=== PATIENT | male | born 1985 | race African-American/Black ===

== ENCOUNTER 2021-01-17 09:12 | Emergency (ER) | payer BC, SELFPAY ==
[2021-01-17 09:15] VITALS: BP 146/96; PULSE 77; RESP 18; TEMP 36.7; O2SAT 100
--- NOTE | 2021-01-17 10:23 | ED.DENTAL ---
HPI - Dental/Oral General Chief complaint: Dental/Oral Stated complaint: mouth pain Time Seen by Provider: 01/17/21 09:14 Source: patient and RN notes reviewed Mode of arrival: ambulatory Limitations: no limitations History of Present Illness HPI Narrative: Patient is a 35-year-old male who presents with right lower posterior dental pain which has been a recurrent issue currently waiting to get into dentistry patient denies any fever chills nausea vomiting is attempted [id number] medications with minimal improvement on arrival is in the room in no distress worse with eating Related Data Allergies Allergy/AdvReac Type Severity Reaction Status Date / Time No Known Allergies Allergy Verified 01/17/21 09:19 Review of Systems Review of Systems: All systems reviewed & are unremarkable except as noted in HPI and below PMFSH Social History Social History (Updated 01/17/21 @ 10:24 by Joseph Layne PA-C) Smoking status: Never smoker Exam Narrative: Exam Narrative: GENERAL: Well-appearing, well-nourished, and in no acute distress. HEAD: Normocephalic, atraumatic. EYES: PERRLA and EOMI. ENT: Nares clear, no rhinorrhea or epistaxis. Mucous membranes moist. Posterior right lower dental decay no space-occupying lesions NECK: Supple. No adenopathy or masses. No carotid bruits or JVD CHEST: Clear to auscultation. No respiratory distress. No wheezes rales or rhonchi HEART: Regular rate and rhythm. No murmur heard. SKIN: Warm, dry, no rash. NEURO: No focal deficits. Alert and oriented x3. PSYCH: Normal mood and affect. Course Course Emergency Course: Patient in the room in no distress aware of case findings treatment plan and diagnosis agreeing to follow-up as instructed or to return if symptoms worsen or concerns. Patient felt appropriate for outpatient reevaluation Vital Signs Vital signs: Vital Signs Temperature 98.1 F 01/17/21 09:15 Pulse Rate 77 01/17/21 09:15 Respiratory Rate 18 01/17/21 09:15 Blood Pressure 146/96 H 01/17/21 09:15 Pulse Oximetry 100 01/17/21 09:15 Temperature 98.1 F 01/17/21 09:15 Pulse Rate 77 01/17/21 09:15 Respiratory Rate 18 01/17/21 09:15 Blood Pressure 146/96 H 01/17/21 09:15 Pulse Oximetry 100 01/17/21 09:15 MDM - Dental/Oral MDM Narrative Medical decision making narrative: Paitents pain and complaint coupled with physical findings are consistant with dentalgia. There are no focal signs of space occupying lesions that are compromising to the ariway. The floor of the mouth is soft with no signs of Ludwigs Angina. Patient is without trismus or drooling and able to swallow secreations. Patient is felt appropriate for discharge home with dental follow up. Discharge Plan Discharge Clinical Impression: Dental abscess Patient Disposition: Home, Self-Care Condition: Stable Instructions: Antibiotic Form, Dental Abscess (ED) Additional Instructions: Follow-up with dentistry in the next 7 to 10 days for reevaluation Return if symptoms worsen or concerns or if there is any increase in redness swelling pain fever nausea vomiting or unable to swallow or open the mouth Only take medications as directed Follow patient education sheets Prescriptions: New amoxicillin 500 mg tablet 500 mg PO TID 10 Days Qty: 30 RF: 0 chlorhexidine gluconate [Peridex] 0.12 % mouthwash 15 ml mucous membrane BID Qty: 1500 RF: 0 hydrocodone-acetaminophen 5-325 mg tablet 1 tablet PO Q6H PRN (Reason: pain) Qty: 6 RF: 0 Follow-up/Referrals: Dental Referral Line [Outside] [facility] [Outside] [facility] [place] [Outside] [facility] [Outside] PHYSICIAN NOT ON STAFF,NONSTAFF [Primary Care Provider] - Stand Alone Forms: Work/School Release IP
== END 2021-01-17 11:15 | disposition home or self-care (01) ==
PROVIDERS: Emergency Provider Emergency Medicine
DX: K04.7 Periapical abscess without sinus (principal)
CPT/HCPCS: 99283

== ENCOUNTER 2021-04-04 05:14 | Emergency (ER) | payer BC, SELFPAY ==
[2021-04-04 05:15] VITALS: BP 146/89; PULSE 70; RESP 18; TEMP 36.3; O2SAT 100
--- NOTE | 2021-04-04 05:40 | ED.DENTAL ---
HPI - Dental/Oral General Chief complaint: Dental/Oral Stated complaint: rt sided dental pain, jaw swelling Time Seen by Provider: 04/04/21 05:20 History of Present Illness HPI Narrative: Patient is a 35-year-old male who presents ER with dental pain. Tooth #31. Has been broken for about 1 year. [place] pain over the last 3 days. Has used dental wax without improvement. No improvement with [id number]-lezyemc medications. He is developed some swelling. No fevers chills or sweats. He is supposed to see his dentist in a couple weeks. Related Data Allergies Allergy/AdvReac Type Severity Reaction Status Date / Time No Known Allergies Allergy Verified 04/04/21 05:18 Review of Systems Constitutional: Constitutional: Denies chills and Denies fever(s) ENT: Denies dysphagia and Denies sore throat Comments: + Dental Pain Gastrointestinal: Gastrointestinal: Denies nausea and Denies vomiting PMFSH Past Medical History Medical History (Updated 04/04/21 @ 05:44 by Finesse Calderon MD) Healthy adult male Surgical History Surgical History (Updated 04/04/21 @ 05:42 by Finesse Calderon MD) No history of previous surgery Social History Social History (Updated 01/17/21 @ 10:24 by Joseph Layne PA-C) Smoking status: Never smoker Exam Narrative: GENERAL: Well-appearing, well-nourished, and in no acute distress. HEAD: Normocephalic, atraumatic. ENT: Mucous membranes moist. Fractured tooth #31. Mild submandibular swelling. NEURO: Alert and oriented x3. PSYCH: Normal mood and affect. Course Course Emergency Course: [place] for pain here. Discharged with antibiotics and pain medication. Vital Signs Vital signs: Vital Signs Temperature 97.3 F L 04/04/21 05:15 Pulse Rate 70 04/04/21 05:15 Respiratory Rate 18 04/04/21 05:15 Blood Pressure 146/89 H 04/04/21 05:15 Pulse Oximetry 100 04/04/21 05:15 Temperature 97.3 F L 04/04/21 05:15 Pulse Rate 70 04/04/21 05:15 Respiratory Rate 18 04/04/21 05:15 Blood Pressure 146/89 H 04/04/21 05:15 Pulse Oximetry 100 04/04/21 05:15 Discharge Plan Discharge Clinical Impression: Toothache Patient Disposition: Home, Self-Care Condition: Stable Instructions: Toothache (ED) Additional Instructions: Return the ER if you have fever over 100.4 ?F, you cannot keep down food or water, you have chest pain or shortness of breath, or you have additional concerns. Prescriptions: New amoxicillin-pot clavulanate [Augmentin] 875-125 mg tablet 1 tablet PO Q12H Qty: 14 RF: 0 hydrocodone-acetaminophen 5-325 mg tablet 1 tablet PO Q6H PRN (Reason: pain) Qty: 12 RF: 0 Follow-up/Referrals: PHYSICIAN NOT ON STAFF,NONSTAFF [Primary Care Provider] - Stand Alone Forms: Work/School Release IP
[2021-04-04] MEDS: HYDROcodone/acetaminophen (*CRX) 5-325 MG TABLET 1 TAB PO (05:46)
[2021-04-04 06:10] VITALS: BP 161/88; PULSE 70; RESP 18; O2SAT 98
== END 2021-04-04 06:10 | disposition home or self-care (01) ==
LOC: ANHED 06:02
PROVIDERS: Emergency Provider Emergency Medicine; PCP Family Medicine
DX: K08.89 Other specified disorders of teeth and supporting structures (principal)
CPT/HCPCS: 99283; A9270

== ENCOUNTER 2021-05-02 19:52 | Emergency (ER) | payer BC, SELFPAY ==
--- NOTE | ~2021-05-02 | CT_ITS ---
EXAMINATION: CT brain wo con INDICATION: Headache COMPARISON: None TECHNIQUE: Standard unenhanced head CT. The dose-length product (DLP) was 605.33 mGy-cm. The mA was a djusted according to patient size. Iterative reconstruction technique was employed. FINDINGS: There is no intracranial hemorrhage, acute infarction, or abnormal mass lesion. The ventric les are normal. There is no abnormal mass effect or midline shift. The nesbitt-white matter differentiat ion is normal. The basal cisterns are patent. The orbits are normal. The paranasal sinuses, mastoids and calvarium are normal. IMPRESSION: 1. No acute intracranial abnormality. Reviewed, dictated and finalized at location [facility].
[2021-05-02 20:20] VITALS: BP 135/84; PULSE 64; RESP 20; TEMP 36.6; O2SAT 99
--- NOTE | 2021-05-02 20:23 | ECG_ITS ---
Measurements Intervals [place] Rate: 53 P: 31 IA: 178 QRS: 5 QRSD: 91 T: -3 QT: 384 QTc: 362 Interpretive Statements SINUS BRADYCARDIA VOLTAGE CRITERIA FOR LVH BORDERLINE T WAVE ABNORMALITY- INFERIOR LEADS BORDERLINE ECG Electronically Signed On 05-02-2021 23:01:55 CDT by Michael Asencio D.O.
[2021-05-02 20:46] VITALS: BP 131/80; PULSE 61; RESP 20; O2SAT 100
[2021-05-02 21:15] LABS: Basophils Absolute Auto 0.1 K/mm3 (0.0-0.1); Basophils Percent Auto 0.8 % (0.2-1.2); Eosinophils Percent Auto 0.5 % (0-4.4); Hematocrit 46.2 % (42.0-52.0); Hemoglobin 15.1 g/dL (14.0-18.0); Immature Granulocyte Absolute 0.02 K/mm3 (0.00-0.031); Immature Granulocyte Percent A 0.3 % (0-0.5); Lymphocytes Absolute Auto 1.97 K/mm3 (0.9-3.2); Lymphocytes Percent Auto 30.6 % (18.3-44.2); Mean Corpuscular HGB Conc 32.7 g/dl (32-36); Mean Corpuscular Hemoglobin 28.1 pg (26-34); Mean Platelet Volume 9.7 fl (7.4-10.4); Monocytes Absolute Auto 0.4 K/mm3 (0.1-0.6); Monocytes Percent Auto 6.8 % (2.6-8.5); Neutrophils Absolute Auto 3.9 K/mm3 (1.3-6.7); Platelet Count Result 285 k/mm3 (150-375); Red Blood Count 5.37 M/mm3 (4.6-6.20); Red Cell Distribution Width 12.8 % (11.5-14.5); White Blood Count 6.4 K/mm3 (4.5-10.0)
[2021-05-02 21:22] LABS: Add Urine Microscopic? NO; Appearance Urine Clear (Clear); Bilirubin Urine Negative (Negative); Blood Urine Negative (Negative); Color Urine Yellow (Yellow); Glucose Urine UA Negative (Negative); Ketones Urine Negative (Negative); Leukocyte Esterase Ur Negative LEU/UL (Negative); Nitrate Urine Negative (Negative); Protein Urine Negative (Negative); Urobilinogen Urine Negative mg/dL (<2.0)
[2021-05-02 22:03] LABS: Alanine Aminotransferase 22 U/L (4-50); Alkaline Phosphatase 94 U/L (38-126); Anion Gap 10 mmol/L (8-16); Aspartate Amino Transferase 30 U/L (17-59); Bilirubin,Total 0.4 mg/dL (0.2-1.3); Blood Urea Nitrogen 11 mg/dL (9-20); Calcium 9.6 mg/dL (8.4-10.2); Carbon Dioxide 29 mmol/L (22-30); Chloride 102 mmol/L (98-107); Estimated CRCL calculation 83 ml/min; Estimated Glomerular Filt Rate > 60; Glucose 96 mg/dL (65-110); Potassium 4.1 mmol/L (3.4-5.0); Sodium 141 mmol/L (137-145)
[2021-05-02 22:45] VITALS: BP 132/84; PULSE 61; RESP 19; O2SAT 100
--- NOTE | 2021-05-02 23:55 | ED.NEUROSD ---
HPI - Neuro Symptoms/Deficit General Chief Complaint: Neuro Symptoms/Deficit Stated Complaint: Blurry vision, light headed Time Seen by Provider: 05/02/21 21:38 History of Present Illness HPI Narrative: Patient presents with headache and vision changes. Patient ports he has had a headache for the past 24 hours has been slowly improving but not resolved so wanted come into the ER for evaluation. Reports been taking some of his 's migraine medication as well as [id number] Excedrin which appears to be helping. His primary concern is he noted some vision changes described as a glossy sensation of everything that he looked at that is now resolved. He denies focal numbness or weakness he denies any nausea or vomiting denies any recent fevers. Reports symptoms onset when he took his vitamins but he took multiple vitamins all months which is unusual for him. Also reports a history of migraine headaches but has not had a headache since he was 20 years old Related Data Home Medications Medication Instructions Recorded Confirmed No Home Medications 05/02/21 05/02/21 Allergies Allergy/AdvReac Type Severity Reaction Status Date / Time ibuprofen AdvReac Nausea Verified 05/02/21 20:41 Review of Systems Review of Systems: CONSTITUTIONAL: Denies fever, chills, or sweats. EYES: Denies visual changes, redness, or discharge. ENT: Denies rhinorrhea, congestion, sore throat, or otalgia. CARDIOVASCULAR: Denies chest pain, palpitations, or edema. RESPIRATORY: Denies cough or dyspnea. GASTROINTESTINAL: Denies abdominal pain, nausea, vomiting, or diarrhea. GENITOURINARY: Denies dysuria or hematuria. SKIN: Denies rash or itching. MUSCULOSKELETAL: Denies back pain, joint pain, or myalgia. NEUROLOGIC: Denies numbness, dizziness, or weakness. PSYCHIATRIC: Denies anxiety or depression. All systems reviewed & are unremarkable except as noted in HPI and below PMFSH Past Medical History Medical History Healthy adult male Surgical History Surgical History No history of previous surgery Social History Social History Smoking status: Never smoker Exam Narrative: GENERAL: Well-appearing, well-nourished, and in no acute distress. HEAD: Normocephalic, atraumatic. EYES: PERRLA and EOMI. ENT: Nares clear, no rhinorrhea or epistaxis. Mucous membranes moist. NECK: Supple. No masses. No meningeal signs EXTREMITIES: Normal range of motion. No edema. SKIN: Warm, dry, no rash. NEURO: Cranial nerves II through XII are intact, 5 out of 5 strength in all extremities, sensation intact to light touch in all extremities alert and oriented x3. PSYCH: Normal mood and affect. Course Reevaluation(s) Reevaluation #1: Patient resting comfortably results reviewed with patient. Patient comfortable with outpatient plan. Patient reports his vision changes resolved prior to ER evaluation Date: 05/02/21 Time: 23:55 Vital Signs Vital signs: Vital Signs Temperature 36.6 C 05/02/21 20:20 Pulse Rate 64 05/02/21 20:20 Respiratory Rate 20 05/02/21 20:20 Blood Pressure 135/84 05/02/21 20:20 Pulse Oximetry 99 05/02/21 20:20 Temperature 36.6 C 05/02/21 20:20 Pulse Rate 58 L 05/03/21 00:37 Respiratory Rate 17 05/03/21 00:37 Blood Pressure 142/86 H 05/03/21 00:37 Pulse Oximetry 99 05/03/21 00:37 MDM - Neuro Symptoms/Deficit MDM Narrative Medical decision making narrative: H&P as above, vss, pt looks clinically well, exam without focal neurological deficits, labs clinically unremarkable, img clinically unremarkable, additional labs/img considered, symptomatic relief available as needed, on reevaluation pt continues to looks clinically well. Suspect migraine with aura, dns CVA, intracranial hemorrhage, mass, encephalitis s, meningitis. plan to tx/monitor as op w/ pc
[2021-05-03 00:04] VITALS: PULSE 56; RESP 12; O2SAT 99
[2021-05-03] MEDS: SODIUM CHLORIDE 0.9% IV 1,000 ML 999 ML IV CONT (00:06)
[2021-05-03 00:37] VITALS: BP 142/86; PULSE 58; RESP 17; O2SAT 99
== END 2021-05-03 00:37 | disposition home or self-care (01) ==
PROVIDERS: Emergency Medicine; Emergency Provider Emergency Medicine
DX: G43.909 Migraine, unspecified, not intractable, without status migrainosus (principal); R00.1 Bradycardia, unspecified; R94.31 Abnormal electrocardiogram [ECG] [EKG]
CPT/HCPCS: 36415; 70450; 80053; 81003; 85025; 93005; 96361; 96365; 99284; J0131; J7030

== ENCOUNTER 2021-07-10 20:01 | Emergency (ER) | payer BC, SELFPAY ==
[2021-07-10 20:06] VITALS: BP 147/84; PULSE 66; RESP 18; TEMP 37.3; O2SAT 100
[2021-07-10 22:38] VITALS: BP 154/75; PULSE 60; RESP 16; O2SAT 96
[2021-07-10 22:43] VITALS: BP 152/79; PULSE 55; RESP 16; O2SAT 98
--- NOTE | 2021-07-10 22:44 | ED.DENTAL ---
HPI - Dental/Oral General Chief complaint: Dental/Oral Stated complaint: dental pain x 1 week Time Seen by Provider: 07/10/21 22:36 Source: patient, RN notes reviewed and old records reviewed Mode of arrival: ambulatory Limitations: no limitations History of Present Illness HPI Narrative: This is a 36 year old male who presents for evaluation of dental pain. He has been dealing with a broken tooth to right lower jaw for over 1 year. He has had worsening pain for 1 week. . HE has been taking Excedrin and gargling with warm water for 1 week without relief. He states he was unable to go to his dentist 3 months ago because his dentist caught covid. He called today and they are supposed going to call him tomorrow to get him. He denies nausea, vomiting, fever or chills. He states he has not been able to eat in 3 days because it hurts to eat. On review of patient old chart, he has been to ER multiple visits for this same tooth. Related Data Allergies Allergy/AdvReac Type Severity Reaction Status Date / Time ibuprofen AdvReac Nausea Verified 07/10/21 20:10 Review of Systems Review of Systems: All systems reviewed & are unremarkable except as noted in HPI and below PMFSH Past Medical History Medical History Healthy adult male Surgical History Surgical History No history of previous surgery Social History Social History Smoking status: Never smoker Exam Const: General: no acute distress and alert Orientation/consciousness: patient oriented x3 HENMT: Ears: external ears normal Mouth: Yes lip normal, Yes tongue normal, Yes moist mucous membranes, No trismus and No restricted motion Teeth and gingiva: abnormal tooth and associated gingiva (#31 broken, no significant gum swelling, but it is tender) and fair dentition Throat: posterior oropharynx normal, tonsils normal and uvula midline Eyes: EOM: EOMs intact bilaterally Neck: Neck: normal visual inspection Resp: Effort & Inspection: normal respiratory effort Neuro: General: patient oriented x3 and moves all extremities Gait exam (Neuro): Normal gait present Extrem: General: normal to inspection Psych: Mental Status: mental status grossly normal Affect: normal affect Course Reevaluation(s) Reevaluation #1: Patient given dose of antibiotics in ER . Date: 07/10/21 Time: 22:49 Vital Signs Vital signs: Vital Signs Temperature 99.2 F 07/10/21 20:06 Pulse Rate 66 07/10/21 20:06 Respiratory Rate 18 07/10/21 20:06 Blood Pressure 147/84 H 07/10/21 20:06 Pulse Oximetry 100 07/10/21 20:06 Temperature 99.2 F 07/10/21 20:06 Pulse Rate 72 07/10/21 23:48 Respiratory Rate 18 07/10/21 23:48 Blood Pressure 137/80 07/10/21 23:48 Pulse Oximetry 100 07/10/21 23:48 Discharge Plan Discharge Clinical Impression: Toothache Patient Disposition: Home, Self-Care Condition: Stable Instructions: Antibiotic Form, Dental Abscess (ED), Toothache (ED) Additional Instructions: Please it is important that you follow up with your dentist for treatment. Take antibiotics to completion. Prescriptions: New amoxicillin-pot clavulanate [Augmentin] 875-125 mg tablet 1 tablet PO Q12H Qty: 20 RF: 0 chlorhexidine gluconate [Peridex] 0.12 % mouthwash 15 ml buccal BID Qty: 1500 RF: 0 ketorolac 10 mg tablet 10 mg PO Q6H PRN (Reason: pain) Qty: 14 RF: 0 ondansetron 4 mg tablet,disintegrating 4 mg PO Q6H PRN (Reason: nausea and vomiting) Qty: 10 RF: 0 Follow-up/Referrals: PHYSICIAN NOT ON STAFF,NONSTAFF [Primary Care Provider] - Stand Alone Forms: Work/School Release IP
[2021-07-10] MEDS: ONDANSETRON HCL ODT 4 MG TABLET 8 MG PO (22:56)
[2021-07-10] MEDS: KETOROLAC (*BKC) 60 MG/2 ML VIAL IM (22:57)
[2021-07-10] MEDS: AMOXICILLIN/CLAVULANATE K 875-125 MG TAB 1 TABLET PO (23:07)
[2021-07-10 23:48] VITALS: BP 137/80; PULSE 72; RESP 18; O2SAT 100
== END 2021-07-10 23:49 | disposition home or self-care (01) ==
LOC: ANHED 22:53
PROVIDERS: Emergency Provider General Practice
DX: K08.89 Other specified disorders of teeth and supporting structures (principal)
CPT/HCPCS: 96372; 99283; A9270; J1885

== ENCOUNTER 2023-04-10 21:13 | Emergency (ER) | payer OTHER, BC, SELFPAY ==
[2023-04-10] VITALS (14 sets, daily range): BP systolic 104–144; BP diastolic 76–84; PULSE 76–93; RESP 17–25; TEMP 36.2–36.7; O2SAT 96–100
--- NOTE | ~2023-04-10 | CT_ITS ---
EXAMINATION: CT abdomen pelvis w con DATE: 04/10/2023 23:37 INDICATION: Epigastric and left lower quadrant abdominal pain TECHNIQUE: Computed tomography (CT) of the abdomen and pelvis was performed with 100 CC Omnipaque 350 intravenous contrast. Automated exposure control and iterative reconstruction technique were employe d. Exam dose: 620.73 mGy-cm total exam DLP. COMPARISON: None. FINDINGS: The lung bases are clear. Heart size is within normal range. No pericardial or pleural effu mukul. The liver, gallbladder, bile ducts, spleen pancreas, pancreatic duct, and adrenal glands and kidneys are unremarkable. Normal caliber of the abdominal aorta. No intraperitoneal or retroperitoneal or pelvic mass lesion or adenopathy or ascites. The urinary bladder, prostate gland and seminal vesicles are unremarkable. Normal appendix. No bowel obstruction, bowel wall thickening, pneumatosis or intraperitoneal free air is detected. Small fat-containing right inguinal hernia. Small fat-containing umbilical hernia. IMPRESSION: Normal appendix No significant abnormality within the abdomen or pelvis Small fat-containing right inguinal hernia Small fat-containing umbilical hernia Reviewed, dictated and finalized at [facility]. Reviewed, dictated and finalized at location A.
[2023-04-10 21:28] LABS: Basophils Percent Auto 0.7 % (0.2-1.2); Eosinophils Absolute Auto 0.1 K/mm3 (0-0.3); Eosinophils Percent Auto 1.3 % (0-4.4); Hematocrit 47.3 % (42.0-52.0); Hemoglobin 15.4 g/dL (14.0-18.0); Immature Granulocyte Absolute 0.01 K/mm3 (0.00-0.031); Immature Granulocyte Percent A 0.2 % (0-0.5); Lymphocytes Absolute Auto 2.33 K/mm3 (0.9-3.2); Lymphocytes Percent Auto 42.3 % (18.3-44.2); Mean Corpuscular HGB Conc 32.6 g/dl (32-36); Mean Corpuscular Hemoglobin 27.1 pg (26-34); Mean Corpuscular Volume 83.1 fl (80-100); Mean Platelet Volume 9.4 fl (7.4-10.4); Monocytes Absolute Auto 0.4 K/mm3 (0.1-0.6); Monocytes Percent Auto 6.9 % (2.6-8.5); Neutrophils Absolute Auto 2.7 K/mm3 (1.3-6.7); Neutrophils Percent Auto 48.6 % (45.5-73.1); Platelet Count Result 291 k/mm3 (150-375); Red Blood Count 5.69 M/mm3 (4.6-6.20); Red Cell Distribution Width 12.6 % (11.5-14.5); White Blood Count 5.5 K/mm3 (4.5-10.0)
[2023-04-10 21:38] LABS: Alanine Aminotransferase 28 U/L (6-50); Albumin Level 4.6 g/dL (3.5-5.1); Alkaline Phosphatase 93 U/L (38-126); Anion Gap 9 mmol/L (8-16); Aspartate Amino Transferase 35 U/L (17-59); Bilirubin,Total 0.6 mg/dL (0.2-1.3); Blood Urea Nitrogen 13 mg/dL (9-20); Calcium 9.4 mg/dL (8.4-10.2); Carbon Dioxide 30 mmol/L (22-30); Chloride 100 mmol/L (98-107); Estimated CRCL calculation 75 ml/min; Estimated Glomerular Filt Rate > 60; Glucose 104 mg/dL (65-110); Lipase 616 U/L (23-300); Potassium 3.8 mmol/L (3.4-5.0); Sodium 139 mmol/L (137-145)
[2023-04-10 22:32] LABS: Appearance Urine Clear (Clear); Bacteria Urine None Seen /hpf; Bilirubin Urine Negative (Negative); Blood Urine Negative (Negative); Color Urine Yellow (Yellow); Glucose Urine UA Negative (Negative); Ketones Urine Trace mg/dL (Negative); Leukocyte Esterase Ur Negative LEU/UL (Negative); Nitrate Urine Negative (Negative); Non Pathogenic Casts 0-2; Protein Urine Trace mg/dL (Negative); RBC Urine 0-2 /hpf (0-2); Specific Grav Ur 1.026 (1.001-1.035); Squamous Epithelial Cell Urine None seen /hpf (Few); WBC Urine 0-5 /hpf
[2023-04-10 22:58] LABS: Add Urine Microscopic? YES
--- NOTE | 2023-04-10 23:29 | ED.GENADULT ---
HPI - General Adult General Chief complaint: Abdominal Pain <ROSELIA Givens Last Filed: 04/11/23 03:29> Stated complaint: abd pain <Magnus Silva PA-C - Last Filed: 04/11/23 03:29> Time Seen by Provider: 04/10/23 22:53 <Magnus Silva PA-C - Last Filed: 04/11/23 03:29> Source: patient <ROSELIA Givens Last Filed: 04/11/23 03:29> Mode of arrival: ambulatory <ROSELIA Givens Last Filed: 04/11/23 03:29> Limitations: no limitations <ROSELIA Givens Last Filed: 04/11/23 03:29> History of Present Illness HPI narrative: This is a 37-year-old male with no pertinent PMH who presents to the ED with chief complaint of abdominal pain intermittently for the past 3 months but a little worse today. He reports that he often has pain across his upper abdomen and epigastric area. He is unsure of anything that specifically makes this better or worse. He has been attributing it to constipation for the past 3 months. States he is having bowel movements every other day. He has been trying to take Tums for acid reflux and Metamucil/MiraLAX for constipation. States this did not give him relief today. He also states that he has been having a new more significant pain in the left lower quadrant in the last couple of days. Denies fevers, chills, nausea, vomiting, urinary symptoms, back pain, chest pain, shortness of breath, cough. Denies alcohol abuse or a history of pancreas problems. Denies any abdominal surgical history. <ROSELIA Givens Last Filed: 04/11/23 03:29> Related Data Allergies/adverse reactions: Allergies Allergy/AdvReac Type Severity Reaction Status Date / Time ibuprofen AdvReac Nausea Verified 07/10/21 20:10 <ROSELIA Givens Last Filed: 04/11/23 03:29> Review of Systems Review of Systems: All systems as dictated in HPI <ROESLIA Givens Last Filed: 04/11/23 03:29> [facility] Past Medical History Medical History: Medical History Healthy adult male <Magnus Silva PA-C - Last Filed: 04/11/23 03:29> Surgical History Surgical History: Surgical History No history of previous surgery <Magnus Silva PA-C - Last Filed: 04/11/23 03:29> Social History Social History: Social History Smoking status: Never smoker <Magnus Silva PA-C - Last Filed: 04/11/23 03:29> Exam Narrative: GENERAL: Well-appearing, well-nourished, and in no acute distress. HEAD: Normocephalic, atraumatic. EYES: PERRLA and EOMI. ENT: Nares clear, no rhinorrhea or epistaxis. Mucous membranes moist. Oropharynx without tonsillar hypertrophy exudate or other lesions. NECK: Supple. No adenopathy or masses. CHEST: No respiratory distress. Clear to auscultation. No wheezes rales or rhonchi HEART: Regular rate and rhythm. No murmur heard. Normal peripheral pulses. ABDOMEN: Tenderness in the epigastrium. Tenderness in the left lower quadrant. Soft, nondistended, normal active bowel sounds. MSK: Normal range of motion. No edema. SKIN: Warm, dry, no rash. NEURO: Alert and oriented x3. No focal deficits. PSYCH: Normal mood and affect. <Magnus Silva PA-C - Last Filed: 04/11/23 03:29> Course Course Emergency Course: He is declining pain medications or nausea medications at this time. <Magnus Silva PA-C - Last Filed: 04/11/23 03:29> FLAKER OPERATOR/PA Physician Supervision This is a was performed by both a physician and an APC. I performed all aspects of the MDM as documented w/ the following additions: All questions answered. Patient in agreement w/ disposition. <Oscar Malagon MD - Last Filed: 04/11/23 04:38> Vital Signs Vital signs: Vital Signs Temperature 97.1 F L 04/10/23 21:15 Pulse Rate 93 04/10/23 21:15 Respiratory Rate 18 04/10/23 21:15 Blood
[2023-04-11] VITALS (25 sets, daily range): BP systolic 110–135; BP diastolic 61–91; PULSE 55–93; RESP 16–22; TEMP 36.4; O2SAT 96–100
[2023-04-11] MEDS: FAMOTIDINE 20 MG/2 ML VIAL IV PUSH (03:00)
[2023-04-11] MEDS: BELLADONNA ALK/PHENOB ELIX 10 ML, MAG HYDROX/ALUMINUM HYD/SIMETH 30 ML, LIDOCAINE HCL 2... PO (03:00)
== END 2023-04-11 04:45 | disposition home or self-care (01) ==
PROVIDERS: Emergency Medicine; Emergency Provider Physician Assistant
DX: K29.70 Gastritis, unspecified, without bleeding (principal)
CPT/HCPCS: 36415; 74177; 80053; 81001; 83690; 85025; 96374; 99284; A9270; Q9967